=== PATIENT | male | born 1955 | race Caucasian/White ===

== ENCOUNTER → 2019-11-19 | Outpatient (CLI) | payer OTHER ==
[~2019-11-19] MED LIST: ANAPROX DS550 MG PO; CEPHALEXIN500 M1 PO; CYCLOBENZAPRINE10 MG PO; DONNATAL1 TAB PO; HYDROCODONE BIT1 T11 PO; KEFLEX500 MG PO; LEVOTHYROXINE0.05 MG PO; LOPRESSOR25 MG PO; MEDROL DOSEPAK4 MG PO; PEPCID20 MG PO; PREDNISONE50 MG PO; PRILOSEC20 MG PO; SKELAXIN800 MG PO; TRAMADOL HCL50 MG PO; ULTRAM50 MG PO; VICODIN ES 7501 TA1; VICODIN ES 7501 TAB PO
== END | disposition home or self-care (01) ==
LOC: CT 08:43
DX: K74.69 Other cirrhosis of liver (principal)

== ENCOUNTER 2020-02-05 23:40 | Emergency (ER) | payer OTHER ==
[~2020-02-05] VITALS: Ht 185.4 cm; Wt 72.6 kg
[2020-02-05 23:43] VITALS: BP 182/90
[2020-02-06] MEDS ORDERED: MEDROL DOSEPAK4 MG PO (02:15)
[2020-02-06] MEDS ORDERED: CYCLOBENZAPRINE10 MG PO (02:15)
== END 2020-02-06 02:40 | disposition home or self-care (01) ==
LOC: ED 23:40
DX: S39.012A Strain of muscle, fascia and tendon of lower back, initial encounter (principal); M51.36 Other intervertebral disc degeneration, lumbar region; G89.29 Other chronic pain; M06.9 Rheumatoid arthritis, unspecified; Z79.2 Long term (current) use of antibiotics; Z79.899 Other long term (current) drug therapy; X58.XXXA Exposure to other specified factors, initial encounter; Y93.89 Activity, other specified; Y92.89 Other specified places as the place of occurrence of the external cause; Y99.8 Other external cause status

== ENCOUNTER 2020-02-17 19:35 | Emergency (ER) | payer OTHER ==
[~2020-02-17] VITALS: Ht 185.4 cm; Wt 72.6 kg
[2020-02-17 19:54] VITALS: BP 173/90
[2020-02-17] MEDS ORDERED: ROBAXIN-750750 MG PO (21:11)
[2020-02-17] MEDS ORDERED: NORCO 5-325 TA1 EACH PO (21:11)
[2020-02-17] MEDS ORDERED: PREDNISONE20 M1 PO (21:22)
[2020-02-18] MEDS ORDERED: PEPCID20 MG PO (22:10)
[2020-02-18] MEDS ORDERED: PRILOSEC20 M1 PO (22:10)
== END 2020-02-17 21:42 | disposition home or self-care (01) ==
LOC: ED 19:35
DX: M54.5 Low back pain (principal); G89.29 Other chronic pain; M19.90 Unspecified osteoarthritis, unspecified site; Z79.899 Other long term (current) drug therapy; Z88.8 Allergy status to other drugs, medicaments and biological substances; Z79.2 Long term (current) use of antibiotics

== ENCOUNTER 2020-02-18 18:44 | Emergency (ER) | payer OTHER ==
[~2020-02-18] VITALS: Ht 177.8 cm; Wt 72.6 kg
[~2020-02-18 18:44] MED LIST changes: +NORCO 5-325 TA1 EACH PO; +PREDNISONE20 M1 PO; +ROBAXIN-750750 MG PO
[2020-02-18 19:08] LABS: BASO % 0.1 % (0.0-1.0); EOS % 0.1 % (1.0-4.0); HEMATOCRIT 39.7 % (42.0-52.0); LYMPH # 2.4 10*3/uL (1.3-4.4); LYMPH % 10.2 % (27.0-41.0); MEAN CELL VOLUME 89.4 fl (80.0-94.0); MEAN CORPUSCULAR HGB 31.5 pg (27.0-31.0); MEAN CORPUSCULAR HGB CONC 35.3 g/dl (33.0-37.0); MEAN PLATELET VOLUME 10.9 fl (9.6-12.3); MONO # 1.4 10*3/uL (0.1-1.0); MONO % 5.9 % (3.0-9.0); NEUT # 19.8 10*3/uL (2.3-7.9); NEUT % 83.2 % (47.0-73.0); PLATELET COUNT AUTOMATED 294 10*3/uL (130-400); RED BLOOD COUNT 4.44 10*6/uL (4.50-5.90); RED CELL DISTRI WIDTH 12.2 % (0-14.5); WHITE BLOOD COUNT 23.8 10*3/uL (4.8-10.8)
[2020-02-18 19:19] LABS: ACT PARTIAL THROMBO TIME 27.6 SECONDS (20.0-32.1)
[2020-02-18 19:24] LABS: ALBUMIN 3.6 gm/dl (3.1-4.5); ALKALINE PHOSPHATASE 59 U/L (45-117); BUN 12 mg/dl (7-24); CHLORIDE 102 mmol/L (98-107); CREATININE 0.81 mg/dL (0.70-1.30); POTASSIUM 3.9 mmol/L (3.5-5.1); SGOT/AST 46 IU/L (3-35); SGPT/ALT 70 U/L (12-78); SODIUM 134 mmol/L (136-145); TOTAL PROTEIN 8.3 gm/dL (6.4-8.2)
[2020-02-18 19:34] LABS: TROPONIN I < 0.015 ng/ml (<0.045)
[2020-02-18 21:44] VITALS: BP 154/78
[2020-02-18] MEDS ORDERED: PEPCID20 MG PO (22:10)
[2020-02-18] MEDS ORDERED: PRILOSEC20 M1 PO (22:10)
[2020-02-19 10:42] LABS: BILIRUBIN NEGATIVE (NEGATIVE); BLOOD NEGATIVE (NEGATIVE); CLARITY CLEAR (CLEAR); COLOR YELLOW (YELLOW); EPITHELIAL CELLS 0-2; GLUCOSE NEGATIVE (NEGATIVE); KETONE 1+ (NEGATIVE); LEUKO ESTERASE NEGATIVE (NEGATIVE); NITRITE NEGATIVE (NEGATIVE); PH 6.5 (5.0-9.0); UROBILINOGEN 0.2 E.U./dl (0.2-1.0)
== END 2020-02-18 22:17 | disposition home or self-care (01) ==
LOC: ED 18:44
PROVIDERS: Emergency Medicine
DX: K29.00 Acute gastritis without bleeding (principal); R11.2 Nausea with vomiting, unspecified; K21.9 Gastro-esophageal reflux disease without esophagitis; M19.90 Unspecified osteoarthritis, unspecified site; Z90.49 Acquired absence of other specified parts of digestive tract; Z88.8 Allergy status to other drugs, medicaments and biological substances; Z79.899 Other long term (current) drug therapy; Z79.2 Long term (current) use of antibiotics

== ENCOUNTER 2020-07-04 17:58 | Emergency (ER) | payer OTHER ==
[~2020-07-04] VITALS: Wt 74.8 kg
[~2020-07-04 17:58] MED LIST changes: +PRILOSEC20 M1 PO
[2020-07-04 18:06] VITALS: BP 159/90
[2020-07-04] MEDS ORDERED: CLINDAMYCIN HC300 MG PO (18:45)
== END 2020-07-04 18:48 | disposition home or self-care (01) ==
LOC: ED 17:58
DX: K04.7 Periapical abscess without sinus (principal); K21.9 Gastro-esophageal reflux disease without esophagitis; M19.90 Unspecified osteoarthritis, unspecified site; F17.200 Nicotine dependence, unspecified, uncomplicated; Z79.899 Other long term (current) drug therapy

== ENCOUNTER 2020-07-06 15:02 | Emergency (ER) | payer OTHER ==
[~2020-07-06] VITALS: Ht 182.8 cm; Wt 74.8 kg
[~2020-07-06 15:02] MED LIST changes: +CLINDAMYCIN HC300 MG PO
[2020-07-06 15:29] VITALS: BP 134/86
[2020-07-06 16:42] LABS: BASO % 0.3 % (0.0-1.0); EOS # 0.2 10*3/uL (0.0-0.4); EOS % 1.6 % (1.0-4.0); HEMATOCRIT 43.7 % (42.0-52.0); LYMPH # 2.4 10*3/uL (1.3-4.4); LYMPH % 21.7 % (27.0-41.0); MEAN CELL VOLUME 89.7 fl (80.0-94.0); MEAN CORPUSCULAR HGB 29.6 pg (27.0-31.0); MEAN PLATELET VOLUME 10.4 fl (9.6-12.3); MONO # 0.8 10*3/uL (0.1-1.0); MONO % 7.4 % (3.0-9.0); NEUT # 7.6 10*3/uL (2.3-7.9); NEUT % 68.7 % (47.0-73.0); PLATELET COUNT AUTOMATED 187 10*3/uL (130-400); RED BLOOD COUNT 4.87 10*6/uL (4.50-5.90); RED CELL DISTRI WIDTH 11.9 % (0-14.5); WHITE BLOOD COUNT 11.1 10*3/uL (4.8-10.8)
[2020-07-06 16:54] LABS: BUN 10 mg/dl (7-24); CHLORIDE 106 mmol/L (98-107); CREATININE 0.84 mg/dL (0.70-1.30); POTASSIUM 3.9 mmol/L (3.5-5.1); SODIUM 139 mmol/L (136-145)
== END 2020-07-06 20:45 | disposition home or self-care (01) ==
LOC: ED 15:02
PROVIDERS: Emergency Medicine
DX: K04.7 Periapical abscess without sinus (principal); E03.9 Hypothyroidism, unspecified; M06.9 Rheumatoid arthritis, unspecified; Z88.1 Allergy status to other antibiotic agents; Z79.899 Other long term (current) drug therapy; Z79.2 Long term (current) use of antibiotics; Z90.89 Acquired absence of other organs; Z96.5 Presence of tooth-root and mandibular implants

== ENCOUNTER 2020-11-11 10:23 | Emergency (ER) | payer OTHER ==
[~2020-11-11] VITALS: Ht 185.4 cm; Wt 79.4 kg
[2020-11-11 10:32] VITALS: BP 164/81
[2020-11-11] MEDS ORDERED: PERCOCET 5-3251 EACH PO (12:36)
[2020-11-11] MEDS ORDERED: PREDNISONE10 MG PO (12:36)
== END 2020-11-11 12:42 | disposition home or self-care (01) ==
LOC: ED 10:23
DX: M25.521 Pain in right elbow (principal); M25.531 Pain in right wrist; K21.9 Gastro-esophageal reflux disease without esophagitis; M06.9 Rheumatoid arthritis, unspecified; E07.89 Other specified disorders of thyroid; Z90.49 Acquired absence of other specified parts of digestive tract; Z88.1 Allergy status to other antibiotic agents; Z79.899 Other long term (current) drug therapy; Z79.2 Long term (current) use of antibiotics; Z90.89 Acquired absence of other organs; W01.0XXA Fall on same level from slipping, tripping and stumbling without subsequent striking against object, initial encounter; Y93.89 Activity, other specified; Y92.89 Other specified places as the place of occurrence of the external cause; Y99.8 Other external cause status

== ENCOUNTER 2022-03-17 13:11 | Emergency (ER) | payer OTHER ==
[~2022-03-17] VITALS: Ht 185.4 cm; Wt 77.1 kg
[~2022-03-17 13:11] MED LIST changes: +PERCOCET 5-3251 EACH PO; +PREDNISONE10 MG PO
[2022-03-17 13:18] VITALS: BP 146/78
[2022-03-17 13:45] LABS: BASO % 0.3 % (0.0-1.0); EOS # 0.2 10*3/uL (0.0-0.4); EOS % 2.4 % (1.0-4.0); HEMATOCRIT 38.1 % (42.0-52.0); LYMPH # 1.7 10*3/uL (1.3-4.4); LYMPH % 25.8 % (27.0-41.0); MEAN CELL VOLUME 90.5 fl (80.0-94.0); MEAN CORPUSCULAR HGB 30.9 pg (27.0-31.0); MEAN CORPUSCULAR HGB CONC 34.1 g/dl (33.0-37.0); MEAN PLATELET VOLUME 9.8 fl (9.6-12.3); MONO # 0.4 10*3/uL (0.1-1.0); MONO % 6.1 % (3.0-9.0); NEUT # 4.4 10*3/uL (2.3-7.9); NEUT % 65.3 % (47.0-73.0); PLATELET COUNT AUTOMATED 151 10*3/uL (130-400); RED BLOOD COUNT 4.21 10*6/uL (4.50-5.90); WHITE BLOOD COUNT 6.7 10*3/uL (4.8-10.8)
[2022-03-17 14:01] LABS: ALKALINE PHOSPHATASE 42 U/L (45-117); BUN 15 mg/dl (7-24); CHLORIDE 110 mmol/L (98-107); CREATININE 0.87 mg/dL (0.70-1.30); POTASSIUM 3.6 mmol/L (3.5-5.1); SGOT/AST 18 IU/L (3-35); SGPT/ALT 27 U/L (12-78); SODIUM 141 mmol/L (136-145); TOTAL PROTEIN 6.7 gm/dL (6.4-8.2)
== END 2022-03-17 17:15 | disposition home or self-care (01) ==
LOC: ED 13:11
PROVIDERS: Student in an Organized Health Care Education/Training Program
DX: R00.2 Palpitations (principal)

== ENCOUNTER → 2023-08-18 | Outpatient (CLI) | payer OTHER | END | disposition home or self-care (01) | LOC: MRI 13:00 | PROVIDERS: ATTEND Specialist | DX: G96.198 Other disorders of meninges, not elsewhere classified (principal); R51.9 Headache, unspecified; R59.0 Localized enlarged lymph nodes ==

== ENCOUNTER 2024-01-06 23:44 | Emergency (ER) | payer OTHER, MEDICARE ==
[~2024-01-06] VITALS: Ht 185.4 cm; Wt 70.3 kg
[2024-01-06 23:52] VITALS: BP 164/67
[2024-01-07] MEDS ORDERED: METHOCARBAMOL 750 MG TAB PO ONE
[2024-01-07] MEDS ORDERED: methylPREDNISolone sod succ 125 MG VIAL IM ONE ×2 (00:10→23:55)
[2024-01-07] MEDS ORDERED: PREDNISONE20 M1 PO (00:11)
[2024-01-07] MEDS ORDERED: METHOCARBAMOL750 M1 PO (00:11)
== END 2024-01-07 00:16 | disposition home or self-care (01) ==
LOC: ED 23:44
DX: S16.1XXA Strain of muscle, fascia and tendon at neck level, initial encounter (principal); Z88.1 Allergy status to other antibiotic agents; Z90.89 Acquired absence of other organs; X50.3XXA Overexertion from repetitive movements, initial encounter; Y93.H9 Activity, other involving exterior property and land maintenance, building and construction; Y92.89 Other specified places as the place of occurrence of the external cause; Y99.8 Other external cause status

== ENCOUNTER → 2025-10-12 | Outpatient (CLI) | payer OTHER ==
[~2025-10-12] MED LIST changes: +METHOCARBAMOL750 M1 PO
== END | disposition home or self-care (01) ==
LOC: US 08:12
PROVIDERS: ATTEND Internal Medicine
DX: R16.0 Hepatomegaly, not elsewhere classified (principal); R10.9 Unspecified abdominal pain; Z90.49 Acquired absence of other specified parts of digestive tract

== ENCOUNTER 2025-10-14 14:23 | Emergency (ER) | payer OTHER ==
[~2025-10-14] VITALS: Ht 185.4 cm; Wt 74.8 kg
[2025-10-14 14:34] VITALS: BP 147/78
[2025-10-14] MEDS ORDERED: SODIUM CHLORIDE 0.9% 1,000 ML IV ONE (15:00)
[2025-10-14] MEDS ORDERED: Water, Sterile 10 ML VIAL ONE (15:43)
[2025-10-14 15:47] LABS: BASO # 0.0 10*3/uL (0.0-0.1); BASO % 0.5 % (0.0-1.0); EOS # 0.2 10*3/uL (0.0-0.4); EOS % 2.4 % (1.0-4.0); MEAN CELL VOLUME 92.9 fl (80.0-94.0); MEAN CORPUSCULAR HGB 30.6 pg (27.0-31.0); MEAN PLATELET VOLUME 9.9 fl (9.6-12.3); MONO # 0.6 10*3/uL (0.1-1.0); MONO % 7.7 % (3.0-9.0); NEUT # 4.6 10*3/uL (2.3-7.9); NEUT % 58.6 % (47.0-73.0); NUCLEATED RED BLOOD CELL 0.0 % (0.0-0.0); NUCLEATED RED BLOOD CELL 0.0 10*3/uL (0.0-0.0); PLATELET COUNT AUTOMATED 177 10*3/uL (130-400); RED CELL DISTRI WIDTH 12.1 % (0-14.5)
[2025-10-14 16:07] LABS: BUN 8 mg/dl (9-23); SGPT/ALT 17 U/L (5-49)
[2025-10-14] MEDS ORDERED: Dicyclomine Hydrochloride 20 MG/10 ML OSYR PO STA (17:07)
[2025-10-14] MEDS ORDERED: MG-AL HYDROXIDE/SIMETICONE 30 ML UDC PO STA (17:07)
[2025-10-14] MEDS ORDERED: PEPCID20 MG PO (18:20)
== END 2025-10-14 18:30 | disposition home or self-care (01) ==
LOC: ED 14:23
PROVIDERS: Nurse Practitioner Family
DX: K21.9 Gastro-esophageal reflux disease without esophagitis (principal); K40.90 Unilateral inguinal hernia, without obstruction or gangrene, not specified as recurrent; M06.9 Rheumatoid arthritis, unspecified; Z90.89 Acquired absence of other organs; Z88.1 Allergy status to other antibiotic agents